=== PATIENT | male | born 1985 | race Two or more races ===

== ENCOUNTER 2023-03-25 11:19 | Emergency (ER) | payer OTHER ==
[~2023-03-25] VITALS: Ht 167.6 cm; Wt 70.3 kg
[2023-03-25 11:19] VITALS: BP 144/77; TEMP 98.1
[2023-03-25 14:02] VITALS: O2SAT 99
== END 2023-03-25 14:03 | disposition home or self-care (01) ==
LOC: ER 11:26
DX: K62.89 Other specified diseases of anus and rectum (principal); Z60.2 Problems related to living alone